=== PATIENT | male | born 1965 | race Hispanic/Latino ===

== ENCOUNTER 2017-09-06 12:03 | Emergency (ER) | payer SELFPAY ==
[2017-09-06] MEDS ORDERED: LIDOCAINE HCL 1% 20 ML VIAL ONE (12:17)
[2017-09-06] MEDS ORDERED: TETANUS/DIPHTHERIA TOXOID [ADULT] 0.5 ML VIAL IM ONE (12:18)
== END 2017-09-06 14:17 | disposition home or self-care (01) ==
LOC: EDH 12:03
DX: S61.210A Laceration without foreign body of right index finger without damage to nail, initial encounter (principal); W29.3XXA Contact with powered garden and outdoor hand tools and machinery, initial encounter; Y93.89 Activity, other specified; Y92.096 Garden or yard of other non-institutional residence as the place of occurrence of the external cause; Y99.8 Other external cause status
CPT/HCPCS: 12042; 90471; 90714

== ENCOUNTER 2018-08-13 19:45 | Emergency (ER) | payer SELFPAY ==
[2018-08-13] MEDS ORDERED: ONDANSETRON HCL 4 MG/2 ML VIAL ONE (20:47)
[2018-08-13] MEDS ORDERED: SODIUM CHLORIDE 0.9% 1000ML 2,000 ML IV ONE (20:47)
[2018-08-13 20:50] LABS: BASOPHILS % (AUTO) 0.4 % (0.0-5.0); HEMATOCRIT 46.2 % (42-54); LYMPHOCYTES % (AUTO) 15.5 % (21.0-51.0); MEAN CORPUSCULAR HGB CONC 34.8 g/dL (32.0-36.0); MEAN CORPUSCULAR VOLUME 91.8 fL (79-99); MONOCYTES % (AUTO) 6.9 % (3.0-13.0); NEUTROPHILS % (AUTO) 77.2 % (40.0-77.0); PLATELET COUNT (AUTO) 71 K/uL (130-400); RED BLOOD CELL COUNT(AUTO) 5.03 MIL/uL (4.50-6.20); RED CELL DISTRIBUTION WIDTH 12.8 % (11.0-15.5); WHITE BLOOD COUNT (AUTO) 4.8 K/uL (4.8-10.8)
[2018-08-13 21:05] LABS: CREATININE 0.9 mg/dL (0.5-1.5); POTASSIUM 3.8 mmol/L (3.5-5.1)
[2018-08-13 21:09] LABS: ALBUMIN 3.3 g/dL (3.5-5.0); BILIRUBIN,TOTAL 0.9 mg/dL (0.2-1.0); TOTAL PROTEIN, SERUM 7.4 g/dL (6.0-8.3)
[2018-08-13] MEDS ORDERED: KETOROLAC TROMETHAMINE 30MG/ML ONE (21:17)
[2018-08-13] MEDS ORDERED: ACETAMINOPHEN EXTRA STRENGTH 500 MG TABLET ONE (21:42)
== END 2018-08-13 23:13 | disposition home or self-care (01) ==
LOC: EDH 19:45
DX: E86.9 Volume depletion, unspecified (principal); B34.9 Viral infection, unspecified; M62.838 Other muscle spasm
CPT/HCPCS: 36415; 80053; 83690; 85025; 87804 ×2; 96361; 96374; 96375; 99283; J1885; J2405; J7030

== ENCOUNTER 2018-08-16 15:16 | Inpatient (IN) | payer SELFPAY ==
[~2018-08-16] VITALS: Ht 167.6 cm; Wt 81.6 kg
[2018-08-16 15:45] LABS: BASOPHILS % (AUTO) 0.4 % (0.0-5.0); EOSINOPHILS % (AUTO) 0.5 % (0.0-8.0); HEMATOCRIT 47.4 % (42-54); LYMPHOCYTES % (AUTO) 5.7 % (21.0-51.0); MEAN CORPUSCULAR HEMOGLOBIN 31.5 pg (27.0-33.0); MEAN CORPUSCULAR HGB CONC 34.5 g/dL (32.0-36.0); MEAN CORPUSCULAR VOLUME 91.3 fL (79-99); MONOCYTES % (AUTO) 2.1 % (3.0-13.0); NEUTROPHILS % (AUTO) 91.3 % (40.0-77.0); NUCLEATED RED BLOOD CELLS 0.1 % (0.0-0.19); PLATELET COUNT (AUTO) 16 K/uL (130-400); RED BLOOD CELL COUNT(AUTO) 5.19 MIL/uL (4.50-6.20); RED CELL DISTRIBUTION WIDTH 13.1 % (11.0-15.5); WHITE BLOOD COUNT (AUTO) 5.7 K/uL (4.8-10.8)
[2018-08-16] MEDS ORDERED: SODIUM CHLORIDE 0.9% 1000ML 2,000 ML IV ONE (15:45)
[2018-08-16 15:59] LABS: POTASSIUM 3.4 mmol/L (3.5-5.1)
[2018-08-16 16:05] LABS: ALBUMIN 2.9 g/dL (3.5-5.0); BILIRUBIN,TOTAL 2.3 mg/dL (0.2-1.0); TOTAL PROTEIN, SERUM 7.3 g/dL (6.0-8.3)
[2018-08-16] MEDS ORDERED: ONDANSETRON HCL 4 MG/2 ML VIAL ONE (16:09)
[2018-08-16 16:21] LABS: PLATELET MORPHOLOGY COMMENT MARKED DECREASE
[2018-08-16 16:48] LABS: INR 1.08 (0.85-1.15); PARTIAL THROMBOPLASTIN TIME 34.8 SEC (26.3-35.5); PROTHROMBIN TIME 11.3 SEC (9.6-11.6)
[2018-08-16] MEDS ORDERED: ACETAMINOPHEN 325 MG TAB ONE (16:52)
[2018-08-16] MEDS ORDERED: SODIUM CHLORIDE 0.9% 500ML 500 ML IV ONE (17:14)
[2018-08-16 17:52] LABS: BASOPHILS % (AUTO) 0.3 % (0.0-5.0); EOSINOPHILS % (AUTO) 0.2 % (0.0-8.0); HEMATOCRIT 36.8 % (42-54); MEAN CORPUSCULAR HEMOGLOBIN 31.9 pg (27.0-33.0); MEAN CORPUSCULAR HGB CONC 34.9 g/dL (32.0-36.0); MEAN CORPUSCULAR VOLUME 91.3 fL (79-99); MONOCYTES % (AUTO) 3.4 % (3.0-13.0); NEUTROPHILS % (AUTO) 89.1 % (40.0-77.0); PLATELET COUNT (AUTO) 14 K/uL (130-400); RED BLOOD CELL COUNT(AUTO) 4.03 MIL/uL (4.50-6.20); RED CELL DISTRIBUTION WIDTH 13.2 % (11.0-15.5); WHITE BLOOD COUNT (AUTO) 4.9 K/uL (4.8-10.8)
[2018-08-16] MEDS: SODIUM CHLORIDE 0.9% 1000ML 1,000 ML IV SCH (19:03)
[2018-08-16] MEDS ORDERED: MORPHINE SULFATE 2 MG/ML 1ML SYG IV PRN (19:15)
[2018-08-16] MEDS ORDERED: ONDANSETRON HCL 4 MG/2 ML VIAL IV PRN (19:15)
[2018-08-16] MEDS: METHYLPREDNISOLONE SOD SUCC 125MG/2ML VIAL IV SCH (19:15)
[2018-08-16] MEDS ORDERED: ACETAMINOPHEN 325 MG TAB PO PRN (19:15)
[2018-08-16] MEDS: DOXYCYCLINE 100MG+NS 250ML 250 ML IV SCH (19:15)
[2018-08-16 19:28] LABS: APPEARANCE,URINE Clear (CLEAR); BILIRUBIN,URINE Negative (NEGATIVE); COLOR,URINE Yellow (YELLOW); GLUCOSE, URINE (UA) Negative (NEGATIVE); KETONES,URINE Negative (NEGATIVE); LEUKOCYTE ESTERASE ,URINE Negative (NEGATIVE); NITRATE,URINE Negative (NEGATIVE); OCCULT BLOOD,URINE Trace (NEGATIVE); PROTEIN,URINE Negative (NEGATIVE)
[2018-08-16] MEDS ORDERED: METHYLPREDNISOLONE SOD SUCC 125MG/2ML VIAL ONE (19:38)
[2018-08-16] MEDS ORDERED: DOXYCYCLINE 100MG+NS 250ML 250 ML IV ONE (19:38)
[2018-08-16] MEDS ORDERED: SODIUM CHLORIDE 0.9% 1000ML 1,000 ML IV ONE (19:38)
[2018-08-16] MEDS ORDERED: MORPHINE SULFATE 2 MG/ML 1ML SYG ONE (19:39)
[2018-08-16 19:58] LABS: BACTERIA,URINE None Seen /HPF (None Seen); RBC,URINE None Seen /HPF (0-1); SQUAMOUS EPITHELIAL CELL,UR 0-2 /HPF (0-2); WBC,URINE None Seen /HPF (0-1)
[2018-08-16] MEDS: ALBUTEROL SULFATE 0.083% 2.5 MG/3 ML INH IH SCH (21:10)
[2018-08-16 21:47] VITALS: BP 99/53
[2018-08-16] MEDS ORDERED: CYCL10 PO (23:05)
[2018-08-16] MEDS ORDERED: ONDA4TAB4 PO (23:05)
[2018-08-17 00:04] VITALS: BP 113/62
[2018-08-17] MEDS: ALBUTEROL SULFATE 0.083% 2.5 MG/3 ML INH IH SCH ×5 (01:36→23:14)
[2018-08-17] MEDS: FAMOTIDINE/PF 20 MG/2 ML VIAL IV SCH ×3 (01:52→21:41)
[2018-08-17] MEDS: SODIUM CHLORIDE 0.9% 1000ML 1,000 ML IV SCH ×3 (01:52→23:58)
[2018-08-17] MEDS: METHYLPREDNISOLONE SOD SUCC 125MG/2ML VIAL IV SCH ×3 (02:51→21:41)
[2018-08-17 05:27] VITALS: BP 86/53
[2018-08-17] MEDS ORDERED: LIDOCAINE HCL-MPF 1% 2ML VIAL IVP PRN (06:15)
[2018-08-17] MEDS ORDERED: POTASSIUM CHLORIDE 10% ELIXIR 20 MEQ/15 ML UDCUP PO PRN (06:15)
[2018-08-17] MEDS ORDERED: POTASSIUM CHLORIDE 10MEQ/100ML 100 ML IV PRN (06:15)
[2018-08-17 06:35] LABS: BASOPHILS % (AUTO) 0.5 % (0.0-5.0); EOSINOPHILS % (AUTO) 0.1 % (0.0-8.0); HEMATOCRIT 38.4 % (42-54); LYMPHOCYTES % (AUTO) 8.3 % (21.0-51.0); MEAN CORPUSCULAR HEMOGLOBIN 31.7 pg (27.0-33.0); MEAN CORPUSCULAR HGB CONC 34.5 g/dL (32.0-36.0); MEAN CORPUSCULAR VOLUME 91.8 fL (79-99); MONOCYTES % (AUTO) 2.5 % (3.0-13.0); NEUTROPHILS % (AUTO) 88.6 % (40.0-77.0); NUCLEATED RED BLOOD CELLS 0.1 % (0.0-0.19); PLATELET COUNT (AUTO) 14 K/uL (130-400); RED BLOOD CELL COUNT(AUTO) 4.18 MIL/uL (4.50-6.20); RED CELL DISTRIBUTION WIDTH 13.3 % (11.0-15.5); WHITE BLOOD COUNT (AUTO) 5.6 K/uL (4.8-10.8)
[2018-08-17 06:53] LABS: ALBUMIN 2.1 g/dL (3.5-5.0); BILIRUBIN,TOTAL 1.7 mg/dL (0.2-1.0); CREATININE 0.6 mg/dL (0.5-1.5); POTASSIUM 3.8 mmol/L (3.5-5.1); TOTAL PROTEIN, SERUM 5.4 g/dL (6.0-8.3)
[2018-08-17 08:00] VITALS: BP 106/82
[2018-08-17] MEDS: DOXYCYCLINE 100MG+NS 250ML 250 ML IV SCH ×2 (09:59→21:42)
[2018-08-17 12:00] VITALS: BP 108/61
[2018-08-17 16:00] VITALS: BP 102/68
--- NOTE | 2018-08-17 18:05 | NUR ---
D/C PLAN CM spoke to pt regarding d/c planning. pt is [place] and lives with spouse. states spouse can assist in care if needed. CM provided community resources packet. plan to home. Pt states he has insurance and has already spoken to business management intern. Addendum: 08/17/18 at 1806 by MORELIA TAVAREZ CM Amended: Links added.
[2018-08-17] MEDS ORDERED: PHARMACY COMMUNICATION MISC SCH (20:15)
[2018-08-17 20:20] VITALS: BP 113/75
[2018-08-17] MEDS ORDERED: LIDOCAINE HCL 2% VISCOUS 30 ML, MAG HYDROX/AL HYDROX/SIMETH 30 ML, DICYCLOMINE HCL 20 MG PO SCH ×3 (20:30)
[2018-08-17] MEDS ORDERED: COMPOUND PO MISCELLANEOUS 1 EACH MISC MISC SCH (20:30)
[2018-08-18 00:06] VITALS: BP 102/67
[2018-08-18] MEDS: METHYLPREDNISOLONE SOD SUCC 125MG/2ML VIAL IV SCH ×2 (03:04→11:05)
[2018-08-18 04:06] VITALS: BP 102/57
[2018-08-18 05:36] LABS: BASOPHILS % (AUTO) 0.3 % (0.0-5.0); HEMATOCRIT 36.6 % (42-54); LYMPHOCYTES % (AUTO) 7.4 % (21.0-51.0); MEAN CORPUSCULAR HGB CONC 34.7 g/dL (32.0-36.0); MEAN CORPUSCULAR VOLUME 92.3 fL (79-99); MONOCYTES % (AUTO) 4.5 % (3.0-13.0); NEUTROPHILS % (AUTO) 87.8 % (40.0-77.0); NUCLEATED RED BLOOD CELLS 0.2 % (0.0-0.19); PLATELET COUNT (AUTO) 27 K/uL (130-400); RED BLOOD CELL COUNT(AUTO) 3.96 MIL/uL (4.50-6.20); RED CELL DISTRIBUTION WIDTH 13.5 % (11.0-15.5); WHITE BLOOD COUNT (AUTO) 9.4 K/uL (4.8-10.8)
[2018-08-18 05:50] LABS: CREATININE 0.7 mg/dL (0.5-1.5); POTASSIUM 3.2 mmol/L (3.5-5.1)
[2018-08-18] MEDS: ALBUTEROL SULFATE 0.083% 2.5 MG/3 ML INH IH SCH ×2 (06:00→11:16)
[2018-08-18] MEDS: DOXYCYCLINE 100MG+NS 250ML 250 ML IV SCH (06:11)
[2018-08-18 07:00] VITALS: BP 126/63
[2018-08-18] MEDS: FAMOTIDINE/PF 20 MG/2 ML VIAL IV SCH (09:22)
[2018-08-18] MEDS: POTASSIUM CHLORIDE 20 MEQ ERTAB PO PRN ×3 (09:23→13:53)
[2018-08-18 11:00] VITALS: BP 131/61
[2018-08-18] MEDS: SODIUM CHLORIDE 0.9% 1000ML 1,000 ML IV SCH (11:11)
[2018-08-18 16:00] VITALS: BP 120/76
[2018-08-18] MEDS ORDERED: DOXY100C2 PO (16:23)
--- NOTE | 2018-08-18 18:11 | NUR ---
PATIENT DISCHARGE PATIENT DISCHARGED, IV DISCONTINUED, BLEEDING CONTROLLED, CATHLON INTACT, PATIENT TOLERATED WITHOUT INCIDENT. LIST OF PRIMARY CARE PHYSICIANS WAS PROVIDED TO PATIENT AND INSTRUCTED TO CALL TO MAKE APPOINTMENT WITH PCP AND WITH DR. GUSMAN.
== END 2018-08-18 18:11 | disposition home or self-care (01) | DRG 872 ==
LOC: EDH 15:16 → EDHIP 15:17 → OBSVTOIN 15:17 → UNDOADMOB 18:45 → EDHIP 18:45 → 3AH 21:27
PROVIDERS: ADMIT Hospitalist; ATTEND Hospitalist
DX: A41.9 Sepsis, unspecified organism (principal); E87.1 Hypo-osmolality and hyponatremia; D69.6 Thrombocytopenia, unspecified; J20.9 Acute bronchitis, unspecified; E86.0 Dehydration; E87.6 Hypokalemia
CPT/HCPCS: 36415; 71046; 80048; 80053; 81001; 83605; 83690; 85025; 85060; 85610; 85730; 86757; 86790; 87040; 87486; 87581; 87633; 87798; 87804; 94640; 94664; G0378; J2405; J2930; J3490; J7030; J7040

== ENCOUNTER 2023-05-02 23:48 | Emergency (ER) | payer OTHER ==
[~2023-05-02] VITALS: Ht 167.6 cm; Wt 69.4 kg
[~2023-05-02 23:48] MED LIST: CYCL10TA16 PO; DOXY100C5 PO; ONDA4TAB4 PO
[2023-05-02 23:51] VITALS: BP 137/89; PULSE 104; RESP 18
[2023-05-03] MEDS ORDERED: AMOX1TAB16 PO (00:05)
[2023-05-03] MEDS ORDERED: TETANUS/DIPHTHERIA TOXOID [ADULT] 0.5 ML VIAL IM ONE (00:30)
[2023-05-03] MEDS ORDERED: AMOX/CLAV 875/125MG TAB PO ONE (00:30)
== END 2023-05-03 00:22 | disposition home or self-care (01) ==
LOC: EDH 23:48
DX: S61.210A Laceration without foreign body of right index finger without damage to nail, initial encounter (principal); S50.811A Abrasion of right forearm, initial encounter; Z79.899 Other long term (current) drug therapy; W55.01XA Bitten by cat, initial encounter; Y93.89 Activity, other specified; Y92.89 Other specified places as the place of occurrence of the external cause; Y99.8 Other external cause status
CPT/HCPCS: 90471; 90714